=== PATIENT | female | born 1950 | race Caucasian/White ===

== ENCOUNTER → 2016-10-10 | Outpatient (CLI) | payer BC | LOC: MC.RAD 10:47 | DX: Z12.31 Encounter for screening mammogram for malignant neoplasm of breast (principal) ==

== ENCOUNTER → 2018-01-20 | Outpatient (CLI) | payer BC | LOC: MC.RAD 15:00 | DX: Z12.31 Encounter for screening mammogram for malignant neoplasm of breast (principal) ==

== ENCOUNTER → 2019-02-16 | Outpatient (CLI) | payer MEDICARE, BC | LOC: MC.RAD 08:45 | DX: Z12.31 Encounter for screening mammogram for malignant neoplasm of breast (principal) ==

== ENCOUNTER 2022-05-01 14:32 | Outpatient (CLI) | payer MEDICARE, BC ==
[2022-05-01 15:12] VITALS: BP 115/73; PULSE 69; TEMP 98.3
[2022-05-01] MEDS ORDERED: KLOR-CON SPRIN10 MEQ PO (15:37)
[2022-05-01] MEDS ORDERED: PREDNISONE 2.52.5 MG PO (15:38)
[2022-05-01] MEDS ORDERED: LIPITOR 10MG10 MG PO (15:39)
[2022-05-01] MEDS ORDERED: HCTZ 25MG TAB25 MG PO (15:40)
[2022-05-01] MEDS ORDERED: OSCAL 500 TAB500 MG PO (15:40)
[2022-05-01] MEDS ORDERED: MESTINON 6060 MG/TAB PO (15:40)
--- NOTE | 2022-05-01 16:08 | NUR ---
IV removed, site wrapped with coban. Pt ambulates out from dept.
== END 2022-05-01 16:20 | disposition home or self-care (01) ==
LOC: EUO 14:32
DX: M81.0 Age-related osteoporosis without current pathological fracture (principal)
CPT/HCPCS: J3489